=== PATIENT | female | born 1945 | race Caucasian/White ===

== ENCOUNTER 2024-10-14 04:46 | Inpatient (IN) | payer MEDICARE ==
[2024-10-14] VITALS (21 sets, daily range): BP systolic 89–146; BP diastolic 37–74
[~2024-10-14] VITALS: Ht 167.6 cm; Wt 61.0 kg
[2024-10-14] MEDS ORDERED: dilTIAZem Hydrochloride 25 MG/5 ML VIAL IV ONE (04:55)
[2024-10-14] MEDS ORDERED: Labetalol Hydrochloride 20 MG/4 ML SYR IV ONE (05:05)
[2024-10-14] MEDS ORDERED: Metoprolol Tartrate 5 MG/5 ML VIAL IV ONE ×4 (05:05→22:45)
[2024-10-14 05:38] LABS: POTASSIUM 4.1 mmol/L (3.4-5.1)
[2024-10-14 05:59] LABS: BASO % 0.2 % (0.0-1.0); EOS % 0.1 % (1.0-4.0); HEMATOCRIT 38.3 % (37.0-47.0); MEAN CELL VOLUME 101.6 fl (81.0-99.0); MEAN CORPUSCULAR HGB 31.8 pg (27.0-31.0); MEAN CORPUSCULAR HGB CONC 31.3 g/dl (33.0-37.0); MEAN PLATELET VOLUME 11.1 fl (9.6-12.3); MONO # 0.9 10*3/uL (0.1-1.0); MONO % 7.3 % (3.0-9.0); NEUT # 10.4 10*3/uL (2.3-7.9); NEUT % 84.5 % (47.0-73.0); PLATELET COUNT AUTOMATED 156 10*3/uL (130-400); RED BLOOD COUNT 3.77 10*6/uL (4.10-5.10); RED CELL DISTRI WIDTH 14.6 % (0-14.5); WHITE BLOOD COUNT 12.3 10*3/uL (4.8-10.8)
[2024-10-14] MEDS ORDERED: Albuterol Sulf/Ipratropium 3 ML VIAL NEB ONE (09:50)
[2024-10-14] MEDS ORDERED: SODIUM CHLORIDE 0.9% 1,000 ML IV SCH (10:00)
[2024-10-14] MEDS ORDERED: cefTRIAXone Sodium 1 GM/10 ML SYR IV ONE (10:00)
[2024-10-14] MEDS ORDERED: AZITHROMYCIN 250 ML IV ONE (10:00)
[2024-10-14] MEDS ORDERED: BISACODYL 5 MG TAB PO PRN (11:25)
[2024-10-14] MEDS ORDERED: Ondansetron Hydrochloride 4 MG/2 ML VIAL IV PRN (11:25)
[2024-10-14] MEDS ORDERED: BISACODYL 10 MG SUPP R PRN (11:25)
[2024-10-14] MEDS ORDERED: ACETAMINOPHEN 325 MG TAB PO PRN (11:25)
[2024-10-14] MEDS ORDERED: DEXTROSE 10 % IN WATER 250 ML IV PRN (11:25)
[2024-10-14] MEDS ORDERED: INSULIN LISPRO 1 UNIT/0.01 ML SQ SCH (11:30)
[2024-10-14] MEDS ORDERED: APRESOLINE25 MG PO (11:34)
[2024-10-14] MEDS ORDERED: MAGNESIUM OXID400 MG PO (11:35)
[2024-10-14] MEDS ORDERED: MIDODRINE HCL10 MG PO (11:35)
[2024-10-14] MEDS ORDERED: Metolazone5 MG PO (11:35)
[2024-10-14] MEDS ORDERED: ATORVASTATIN CA40 M1 PO (11:36)
[2024-10-14] MEDS ORDERED: GABAPENTIN100 M2 PO (11:37)
[2024-10-14] MEDS ORDERED: CALCIUM ACETAT667 MG PO (11:37)
[2024-10-14] MEDS ORDERED: RENA-VITE1 TAB PO (11:37)
[2024-10-14] MEDS ORDERED: BUDESONIDE0.5 MG/2 M INH (11:38)
[2024-10-14] MEDS ORDERED: DOCUSATE SOD100 MG PO (11:38)
[2024-10-14] MEDS ORDERED: Ipratropium Brom3 ML INH (11:39)
[2024-10-14] MEDS ORDERED: RENVELA800 MG PO (11:39)
[2024-10-14] MEDS ORDERED: WARFARIN SODIUM3 MG PO (11:39)
[2024-10-14] MEDS ORDERED: TOUJEO SOL300 UNIT/1 SQ (11:40)
[2024-10-14] MEDS ORDERED: ISORDIL10 M1 PO (11:40)
[2024-10-14] MEDS ORDERED: METOPROLOL SUC100 M1 PO (11:40)
[2024-10-14] MEDS ORDERED: HYDROCODONE-AC1 EAC1 PO (11:41)
[2024-10-14] MEDS ORDERED: OMEPRAZOLE MAGN20 MG PO (11:41)
[2024-10-14] MEDS ORDERED: BUDESONIDE 0.5 MG AMP NEB SCH (12:34)
[2024-10-14] MEDS ORDERED: Albuterol Sulf/Ipratropium 3 ML VIAL NEB SCH (12:34)
[2024-10-14 14:51] LABS: ARTERIAL BLOOD GAS PH 7.28 (7.350-7.450)
[2024-10-14 14:53] LABS: ABG BASE EXCESS 0.2 mmol/L (-2.0-3.0); ABG O2 SATURATION 94.6 % (94.0-98.0); ARTERIAL BLOOD GAS PO2 82.3 mmHg (83.0-108.0)
[2024-10-14 17:20] LABS: ABG BASE EXCESS 1.7 mmol/L (-2.0-3.0); ABG O2 SATURATION 97.3 % (94.0-98.0); ARTERIAL BLOOD GAS PH 7.361 (7.350-7.450); ARTERIAL BLOOD GAS PO2 89.8 mmHg (83.0-108.0)
[2024-10-14] MEDS ORDERED: WARFARIN SODIUM 3 MG TAB PO SCH (18:00)
[2024-10-14] MEDS ORDERED: GUAIFENESIN 600 MG TAB ER PO SCH (22:00)
[2024-10-14] MEDS ORDERED: HEPARIN SODIUM 5,000 UNIT/ML VIAL SC SCH (22:00)
[2024-10-14] MEDS ORDERED: ALBUTEROL 8 GM INHALER INH ONE (22:35)
[2024-10-14] MEDS ORDERED: diazePAM 10 MG/2 ML SYR IV ONE (22:40)
[2024-10-15] VITALS (23 sets, daily range): BP systolic 105–151; BP diastolic 17–70
[2024-10-15] MEDS ORDERED: Acetaminophen/Hydrocodone 5 MG/325 MG TABLET PO PRN (01:10)
[2024-10-15 01:37] LABS: ABG O2 SATURATION 94.3 % (94.0-98.0); ARTERIAL BLOOD GAS PH 7.337 (7.350-7.450); ARTERIAL BLOOD GAS PO2 81.7 mmHg (83.0-108.0)
[2024-10-15 01:38] LABS: ABG BASE EXCESS -2.1 mmol/L (-2.0-3.0)
[2024-10-15] MEDS ORDERED: OMEPRAZOLE 20 MG CAP PO SCH (06:00)
[2024-10-15] MEDS ORDERED: diazePAM 10 MG/2 ML SYR IV ONE ×2 (06:10→11:50)
[2024-10-15 06:42] LABS: BASO # 0.1 10*3/uL (0.0-0.1); BASO % 0.4 % (0.0-1.0); EOS % 0.2 % (1.0-4.0); HEMATOCRIT 39.2 % (37.0-47.0); MEAN CORPUSCULAR HGB 31.9 pg (27.0-31.0); MEAN CORPUSCULAR HGB CONC 31.9 g/dl (33.0-37.0); MEAN PLATELET VOLUME 10.9 fl (9.6-12.3); MONO # 0.8 10*3/uL (0.1-1.0); MONO % 6.4 % (3.0-9.0); NEUT # 10.1 10*3/uL (2.3-7.9); NEUT % 83.1 % (47.0-73.0); PLATELET COUNT AUTOMATED 150 10*3/uL (130-400); RED BLOOD COUNT 3.92 10*6/uL (4.10-5.10); WHITE BLOOD COUNT 12.1 10*3/uL (4.8-10.8)
[2024-10-15 07:26] LABS: FREE T4 0.98 ng/dl (0.89-1.76); TOTAL PROTEIN 7.7 gm/dL (6.0-8.0)
[2024-10-15 07:40] LABS: POTASSIUM 5.2 mmol/L (3.4-5.1)
[2024-10-15] MEDS ORDERED: Sevelamer Hydrochloride 800 MG TAB PO SCH (08:00)
[2024-10-15] MEDS ORDERED: CALCIUM ACETATE 667 MG CAP PO SCH (08:00)
[2024-10-15 08:05] LABS: VITAMIN D, 25-HYDROXY 92.1 ng/mL (30-100)
[2024-10-15] MEDS ORDERED: HEPARIN SODIUM 10,000 UN/10 ML VIAL IV SCH (08:25)
[2024-10-15] MEDS ORDERED: SODIUM CHLORIDE 0.9% 1,000 ML IV SCH (08:25)
[2024-10-15] MEDS ORDERED: ALBUMIN 25% 50 ML IV PRN (08:25)
[2024-10-15] MEDS ORDERED: MANNITOL 12.5 GM/50 ML VIAL IV SCH (08:25)
[2024-10-15] MEDS ORDERED: HEPARIN SODIUM 5,000 UNIT/ML VIAL IV SCH (08:25)
[2024-10-15] MEDS ORDERED: SODIUM CHLORIDE 23.4% 120 MEQ/30 ML VIAL IV SCH (08:25)
[2024-10-15] MEDS ORDERED: HEPARIN SODIUM 10,000 UN/10 ML VIAL IV ONE (08:54)
[2024-10-15] MEDS ORDERED: SODIUM CHLORIDE 0.9% 1,000 ML (CHILLED) IVB IV ONE ×2 (08:54→08:55)
[2024-10-15] MEDS ORDERED: METOPROLOL SUCCINATE XR 100 MG TAB PO SCH (10:00)
[2024-10-15] MEDS ORDERED: AZITHROMYCIN 250 ML IV SCH (10:00)
[2024-10-15] MEDS ORDERED: hydrALAZINE hydrochloride 25 MG TAB PO SCH (10:00)
[2024-10-15] MEDS ORDERED: Midodrine Hydrochloride 5 MG TAB PO SCH (10:00)
[2024-10-15] MEDS ORDERED: GABAPENTIN 100 MG CAP PO SCH (10:00)
[2024-10-15] MEDS ORDERED: DOCUSATE SODIUM 100 MG CAP PO SCH (10:00)
[2024-10-15] MEDS ORDERED: cefTRIAXone Sodium 1 GM,IV 1 EA in SYRINGE INFUSION 10 ML IV SCH (11:00)
[2024-10-15] MEDS ORDERED: Metoprolol Tartrate 5 MG/5 ML VIAL IV ONE ×4 (11:25→15:25)
[2024-10-15 11:33] LABS: ABG O2 SATURATION 91.8 % (94.0-98.0); ARTERIAL BLOOD GAS PO2 69.2 mmHg (83.0-108.0)
[2024-10-15 11:37] LABS: ABG BASE EXCESS -2.5 mmol/L (-2.0-3.0)
[2024-10-15 11:42] LABS: ARTERIAL BLOOD GAS PH 7.239 (7.350-7.450)
[2024-10-15] MEDS ORDERED: dilTIAZem Hydrochloride 100 ML IV ONE (11:42)
[2024-10-15] MEDS ORDERED: DIAZEPAM IV ONE (12:12)
[2024-10-15] MEDS ORDERED: dexmedeTOMIDine IN 0.9 % NACL 100 ML IV SCH (13:35)
[2024-10-15 14:33] LABS: ABG O2 SATURATION 95.6 % (94.0-98.0)
[2024-10-15 14:40] LABS: ARTERIAL BLOOD GAS PO2 86.2 mmHg (83.0-108.0)
[2024-10-15 14:42] LABS: ABG BASE EXCESS -2.5 mmol/L (-2.0-3.0); ARTERIAL BLOOD GAS PH 7.251 (7.350-7.450)
[2024-10-15] MEDS ORDERED: SODIUM CHLORIDE 0.9% 500 ML IV ONE (16:35)
[2024-10-15] MEDS ORDERED: Albuterol Sulf/Ipratropium 3 ML VIAL NEB SCH (17:00)
[2024-10-15] MEDS ORDERED: IPRATROPIUM BROMIDE 0.5 MG/2.5 ML AMP NEB SCH (17:00)
[2024-10-15] MEDS ORDERED: Midazolam Hydrochloride 5 MG/5 ML VIAL ONE ×2 (17:32→18:38)
[2024-10-15] MEDS ORDERED: Midazolam Hydrochloride 2 MG/2 ML VIAL IV PRN (17:50)
[2024-10-15] MEDS ORDERED: ATORVASTATIN CALCIUM 40 MG TABLET PO SCH (18:00)
[2024-10-15] MEDS ORDERED: NOREPINEPHRINE BITARTRATE/D5W 250 ML IV SCH (18:50)
[2024-10-15] MEDS ORDERED: NOREPINEPHRINE BITARTRATE/D5W 250 ML IV ONE (19:09)
[2024-10-15] MEDS ORDERED: CEFEPIME HCL IN DEXTROSE 5 % 50 ML IV SCH (21:30)
[2024-10-15 21:58] LABS: ABG O2 SATURATION 99.8 % (94.0-98.0); ARTERIAL BLOOD GAS PH 7.29 (7.350-7.450)
[2024-10-15 21:59] LABS: ABG BASE EXCESS -5.1 mmol/L (-2.0-3.0)
[2024-10-15] MEDS ORDERED: Chlorhexidine Gluconate 15 ML MOUTHWASH T SCH (22:00)
[2024-10-15] MEDS ORDERED: Doxycycline Hyclate 100 MG,IV 1 EA in SODIUM CHLORIDE 0.9% 250 ML IV SCH (22:00)
[2024-10-15 22:01] LABS: ARTERIAL BLOOD GAS PO2 544.7 mmHg (83.0-108.0)
[2024-10-15] MEDS ORDERED: SODIUM BICARBONATE 50 MEQ/50 ML VIAL IV ONE (22:15)
[2024-10-16] VITALS (81 sets, daily range): BP systolic 92–149; BP diastolic 41–68
[2024-10-16 05:07] LABS: POTASSIUM 4.6 mmol/L (3.4-5.1)
[2024-10-16 06:02] LABS: BASO % 0.6 % (0.0-1.0); EOS % 0.2 % (1.0-4.0); MEAN CELL VOLUME 99.7 fl (81.0-99.0); MEAN CORPUSCULAR HGB 31.8 pg (27.0-31.0); MEAN CORPUSCULAR HGB CONC 31.9 g/dl (33.0-37.0); MEAN PLATELET VOLUME 11.8 fl (9.6-12.3); MONO # 0.7 10*3/uL (0.1-1.0); MONO % 10.1 % (3.0-9.0); NEUT # 4.9 10*3/uL (2.3-7.9); NEUT % 76.1 % (47.0-73.0); PLATELET COUNT AUTOMATED 140 10*3/uL (130-400); RED BLOOD COUNT 3.71 10*6/uL (4.10-5.10); RED CELL DISTRI WIDTH 14.6 % (0-14.5); WHITE BLOOD COUNT 6.4 10*3/uL (4.8-10.8)
[2024-10-16 07:48] LABS: ABG BASE EXCESS 0.9 mmol/L (-2.0-3.0); ABG O2 SATURATION 99.6 % (94.0-98.0); ARTERIAL BLOOD GAS PH 7.374 (7.350-7.450); ARTERIAL BLOOD GAS PO2 218.1 mmHg (83.0-108.0)
[2024-10-16] MEDS ORDERED: Pantoprazole Sodium 40 MG VIAL IV SCH (10:00)
[2024-10-16] MEDS ORDERED: ETOMIDATE 20 MG/10 ML VIAL IV ONE (13:05)
[2024-10-17] VITALS (29 sets, daily range): BP systolic 89–133; BP diastolic 33–68
[2024-10-17 05:31] LABS: POTASSIUM 4.3 mmol/L (3.4-5.1)
[2024-10-17 06:06] LABS: BASO % 0.5 % (0.0-1.0); EOS # 0.2 10*3/uL (0.0-0.4); EOS % 2.6 % (1.0-4.0); HEMATOCRIT 36.2 % (37.0-47.0); MEAN CELL VOLUME 97.3 fl (81.0-99.0); MEAN CORPUSCULAR HGB 31.5 pg (27.0-31.0); MEAN CORPUSCULAR HGB CONC 32.3 g/dl (33.0-37.0); MEAN PLATELET VOLUME 11.6 fl (9.6-12.3); MONO # 0.6 10*3/uL (0.1-1.0); MONO % 7.7 % (3.0-9.0); NEUT # 6.8 10*3/uL (2.3-7.9); PLATELET COUNT AUTOMATED 128 10*3/uL (130-400); RED BLOOD COUNT 3.72 10*6/uL (4.10-5.10); RED CELL DISTRI WIDTH 14.4 % (0-14.5); WHITE BLOOD COUNT 8.4 10*3/uL (4.8-10.8)
[2024-10-17 07:18] LABS: ABG BASE EXCESS -0.8 mmol/L (-2.0-3.0); ABG O2 SATURATION 95.9 % (94.0-98.0); ARTERIAL BLOOD GAS PH 7.367 (7.350-7.450); ARTERIAL BLOOD GAS PO2 93.1 mmHg (83.0-108.0)
[2024-10-17] MEDS ORDERED: DEXMEDETOMIDINE HCL IV SCH (07:30)
[2024-10-17] MEDS ORDERED: SODIUM CHLORIDE 0.9% IV SCH (07:30)
[2024-10-17] MEDS ORDERED: Amiodarone Hydrochloride 150 MG,IV 1 EA in DEXTROSE 5% 100 ML IV ONE (09:50)
[2024-10-17] MEDS ORDERED: Amiodarone Hydrochloride 900 MG in DEXTROSE 5% 500 ML IV SCH (10:00)
[2024-10-17] MEDS ORDERED: Amiodarone Hydrochloride 150 MG in DEXTROSE 5% 100 ML IV ONE (10:00)
[2024-10-17 19:14] LABS: ABG O2 SATURATION 96.4 % (94.0-98.0); ARTERIAL BLOOD GAS PH 7.353 (7.350-7.450); ARTERIAL BLOOD GAS PO2 91.9 mmHg (83.0-108.0)
[2024-10-17 19:15] LABS: ABG BASE EXCESS -3.4 mmol/L (-2.0-3.0)
[2024-10-17] MEDS ORDERED: Vancomycin Hydrochloride 1,000 MG VIAL IV SCH (20:10)
[2024-10-17] MEDS ORDERED: Vancomycin Hydrochloride 1,000 MG in SODIUM CHLORIDE 0.9% 250 ML IV SCH (21:00)
[2024-10-18] VITALS (12 sets, daily range): BP systolic 88–132; BP diastolic 28–84
[2024-10-18 05:12] LABS: POTASSIUM 4.4 mmol/L (3.4-5.1); TOTAL PROTEIN 5.8 gm/dL (6.0-8.0)
[2024-10-18 06:03] LABS: BASO % 0.2 % (0.0-1.0); EOS # 0.1 10*3/uL (0.0-0.4); EOS % 1.1 % (1.0-4.0); HEMATOCRIT 32.6 % (37.0-47.0); MEAN CELL VOLUME 96.7 fl (81.0-99.0); MEAN CORPUSCULAR HGB CONC 33.1 g/dl (33.0-37.0); MEAN PLATELET VOLUME 12.2 fl (9.6-12.3); MONO # 0.7 10*3/uL (0.1-1.0); MONO % 6.9 % (3.0-9.0); NEUT # 7.8 10*3/uL (2.3-7.9); PLATELET COUNT AUTOMATED 115 10*3/uL (130-400); RED BLOOD COUNT 3.37 10*6/uL (4.10-5.10); RED CELL DISTRI WIDTH 14.1 % (0-14.5); WHITE BLOOD COUNT 10.1 10*3/uL (4.8-10.8)
[2024-10-18 08:58] LABS: ARTERIAL BLOOD GAS PH 7.339 (7.350-7.450)
[2024-10-18 09:00] LABS: ABG BASE EXCESS -5.1 mmol/L (-2.0-3.0); ABG O2 SATURATION 95.4 % (94.0-98.0); ARTERIAL BLOOD GAS PO2 88.6 mmHg (83.0-108.0)
[2024-10-18] MEDS ORDERED: HEPARIN SODIUM 10,000 UN/10 ML VIAL IV ONE (09:33)
[2024-10-18] MEDS ORDERED: SODIUM CHLORIDE 0.9% 1,000 ML BAG IV ONE (09:33)
[2024-10-18] MEDS ORDERED: PROPOFOL 500 MG/50 ML VIAL IV SCH (10:25)
[2024-10-18] MEDS ORDERED: PROPOFOL 1,000 MG/100 ML VIAL IV SCH (11:15)
[2024-10-18] MEDS ORDERED: Vancomycin Hydrochloride 500 MG in SODIUM CHLORIDE 0.9% 100 ML IV SCH (16:00)
[2024-10-18] MEDS ORDERED: methylPREDNISolone sod succ 40 MG VIAL IV SCH (18:00)
[2024-10-18] MEDS ORDERED: Metoprolol Tartrate 25 MG TAB PO SCH (22:00)
[2024-10-19] VITALS (12 sets, daily range): BP systolic 93–165; BP diastolic 28–73
[2024-10-19 06:18] LABS: HEMATOCRIT 32.2 % (37.0-47.0); MEAN CELL VOLUME 97.6 fl (81.0-99.0); MEAN CORPUSCULAR HGB 31.8 pg (27.0-31.0); MEAN CORPUSCULAR HGB CONC 32.6 g/dl (33.0-37.0); MEAN PLATELET VOLUME 12.4 fl (9.6-12.3); PLATELET COUNT AUTOMATED 117 10*3/uL (130-400); RED CELL DISTRI WIDTH 14.3 % (0-14.5); WHITE BLOOD COUNT 10.1 10*3/uL (4.8-10.8)
[2024-10-19 06:23] LABS: MANUAL DIFF REFLEX YES
[2024-10-19 06:28] LABS: POTASSIUM 4.6 mmol/L (3.4-5.1)
[2024-10-19 08:19] LABS: ABG O2 SATURATION 96.5 % (94.0-98.0); ARTERIAL BLOOD GAS PH 7.377 (7.350-7.450); ARTERIAL BLOOD GAS PO2 86.2 mmHg (83.0-108.0)
[2024-10-19 08:30] LABS: BURR CELLS FEW; POLYCHROMASIA SLIGHT; TOTAL CELLS COUNTED 100 #CELLS
[2024-10-19 08:31] LABS: PLATELET SUFFICIENCY NORMAL (NORMAL)
[2024-10-19] MEDS ORDERED: Meropenem 500 MG in SODIUM CHLORIDE 0.9% 100 ML IV SCH (16:00)
[2024-10-20] VITALS (13 sets, daily range): BP systolic 107–151; BP diastolic 28–58
[2024-10-20 04:35] LABS: MEAN CELL VOLUME 96.5 fl (81.0-99.0); MEAN CORPUSCULAR HGB 31.6 pg (27.0-31.0); MEAN CORPUSCULAR HGB CONC 32.7 g/dl (33.0-37.0); MEAN PLATELET VOLUME 11.2 fl (9.6-12.3); RED BLOOD COUNT 3.42 10*6/uL (4.10-5.10); RED CELL DISTRI WIDTH 14.2 % (0-14.5); WHITE BLOOD COUNT 14.1 10*3/uL (4.8-10.8)
[2024-10-20 04:36] LABS: MANUAL DIFF REFLEX YES
[2024-10-20 04:37] LABS: PLATELET COUNT AUTOMATED 166 10*3/uL (130-400)
[2024-10-20 04:51] LABS: POTASSIUM 4.4 mmol/L (3.4-5.1)
[2024-10-20 04:59] LABS: ATYPICAL LYMPHS 1 % (0-0); PLATELET SUFFICIENCY NORMAL (NORMAL); TOTAL CELLS COUNTED 100 #CELLS
[2024-10-20 05:00] LABS: BURR CELLS FEW; POLYCHROMASIA SLIGHT; ROULEAUX SLIGHT
[2024-10-20] MEDS ORDERED: HEPARIN SODIUM 10,000 UN/10 ML VIAL IV ONE (08:43)
[2024-10-20] MEDS ORDERED: SODIUM CHLORIDE 0.9% 1,000 ML BAG IV ONE (08:43)
[2024-10-20] MEDS ORDERED: Oseltamivir Phosphate 30 MG CAP PO SCH ×2 (10:00)
[2024-10-20] MEDS ORDERED: Metoprolol Tartrate 50 MG TAB PO SCH (22:00)
[2024-10-21] VITALS (10 sets, daily range): BP systolic 107–140; BP diastolic 28–49
[2024-10-21 06:49] LABS: POTASSIUM 4.4 mmol/L (3.4-5.1)
[2024-10-21 06:50] LABS: BASO % 0.2 % (0.0-1.0); HEMATOCRIT 36.9 % (37.0-47.0); MEAN CELL VOLUME 98.7 fl (81.0-99.0); MEAN CORPUSCULAR HGB 31.6 pg (27.0-31.0); MEAN PLATELET VOLUME 11.2 fl (9.6-12.3); MONO # 0.8 10*3/uL (0.1-1.0); MONO % 4.9 % (3.0-9.0); NEUT # 14.1 10*3/uL (2.3-7.9); NEUT % 89.1 % (47.0-73.0); NUCLEATED RED BLOOD CELL 0.1 % (0.0-0.0); RED BLOOD COUNT 3.74 10*6/uL (4.10-5.10); RED CELL DISTRI WIDTH 14.3 % (0-14.5); WHITE BLOOD COUNT 15.8 10*3/uL (4.8-10.8)
[2024-10-21 06:51] LABS: PLATELET COUNT AUTOMATED 236 10*3/uL (130-400)
[2024-10-21 11:49] LABS: ABG BASE EXCESS 0.9 mmol/L (-2.0-3.0); ABG O2 SATURATION 92.6 % (94.0-98.0); ARTERIAL BLOOD GAS PH 7.414 (7.350-7.450); ARTERIAL BLOOD GAS PO2 63.5 mmHg (83.0-108.0)
[2024-10-21] MEDS ORDERED: Meropenem 50 ML IV SCH (16:00)
[2024-10-21] MEDS ORDERED: WARFARIN SODIUM 2.5 MG TAB PO SCH (18:00)
[2024-10-21 18:07] LABS: ABG BASE EXCESS -1.2 mmol/L (-2.0-3.0); ABG O2 SATURATION 95.2 % (94.0-98.0); ARTERIAL BLOOD GAS PH 7.389 (7.350-7.450)
[2024-10-22] VITALS: BP 129/33
[2024-10-22 03:58] VITALS: BP 129/39
[2024-10-22 07:08] LABS: HEMATOCRIT 32.9 % (37.0-47.0); MEAN CELL VOLUME 97.6 fl (81.0-99.0); MEAN CORPUSCULAR HGB 30.9 pg (27.0-31.0); MEAN CORPUSCULAR HGB CONC 31.6 g/dl (33.0-37.0); MEAN PLATELET VOLUME 10.5 fl (9.6-12.3); PLATELET COUNT AUTOMATED 227 10*3/uL (130-400); RED BLOOD COUNT 3.37 10*6/uL (4.10-5.10); RED CELL DISTRI WIDTH 14.2 % (0-14.5); WHITE BLOOD COUNT 19.4 10*3/uL (4.8-10.8)
[2024-10-22 07:09] LABS: MANUAL DIFF REFLEX YES
[2024-10-22 07:43] LABS: POTASSIUM 4.5 mmol/L (3.4-5.1)
[2024-10-22 08:00] VITALS: BP 130/47
[2024-10-22 08:23] LABS: PLATELET SUFFICIENCY NORMAL (NORMAL); SCHISTOCYTES FEW; TOTAL CELLS COUNTED 100 #CELLS
[2024-10-22] MEDS ORDERED: HEPARIN SODIUM 10,000 UN/10 ML VIAL IV ONE (08:49)
[2024-10-22] MEDS ORDERED: SODIUM CHLORIDE 0.9% 1,000 ML BAG IV ONE (08:49)
[2024-10-22] MEDS ORDERED: methylPREDNISolone sod succ 40 MG VIAL IV SCH (10:00)
[2024-10-22 12:00] VITALS: BP 136/46
[2024-10-22 16:00] VITALS: BP 138/33
[2024-10-22 17:40] LABS: ABG BASE EXCESS 0.7 mmol/L (-2.0-3.0); ARTERIAL BLOOD GAS PH 7.398 (7.350-7.450)
[2024-10-22 20:00] VITALS: BP 121/51
[2024-10-23] VITALS: BP 95/38
[2024-10-23 04:00] VITALS: BP 93/38
[2024-10-23 05:20] LABS: POTASSIUM 4.6 mmol/L (3.4-5.1)
[2024-10-23 06:24] LABS: BASO % 0.3 % (0.0-1.0); EOS % 0.1 % (1.0-4.0); HEMATOCRIT 33.9 % (37.0-47.0); MEAN CELL VOLUME 98.5 fl (81.0-99.0); MEAN CORPUSCULAR HGB 31.4 pg (27.0-31.0); MEAN CORPUSCULAR HGB CONC 31.9 g/dl (33.0-37.0); MEAN PLATELET VOLUME 11.7 fl (9.6-12.3); MONO % 7.7 % (3.0-9.0); NEUT # 10.8 10*3/uL (2.3-7.9); NEUT % 80.3 % (47.0-73.0); NUCLEATED RED BLOOD CELL 0.1 % (0.0-0.0); PLATELET COUNT AUTOMATED 186 10*3/uL (130-400); RED BLOOD COUNT 3.44 10*6/uL (4.10-5.10); RED CELL DISTRI WIDTH 14.1 % (0-14.5); WHITE BLOOD COUNT 13.4 10*3/uL (4.8-10.8)
[2024-10-23 08:00] VITALS: BP 116/44
[2024-10-23 12:00] VITALS: BP 109/44
[2024-10-23 16:00] VITALS: BP 89/53
[2024-10-23 20:00] VITALS: BP 104/44
[2024-10-24] VITALS (7 sets, daily range): BP systolic 99–128; BP diastolic 36–54
[2024-10-24 05:18] LABS: POTASSIUM 4.4 mmol/L (3.4-5.1)
[2024-10-24 06:20] LABS: HEMATOCRIT 33.5 % (37.0-47.0); MEAN CORPUSCULAR HGB 31.3 pg (27.0-31.0); MEAN CORPUSCULAR HGB CONC 31.9 g/dl (33.0-37.0); MEAN PLATELET VOLUME 10.9 fl (9.6-12.3); PLATELET COUNT AUTOMATED 238 10*3/uL (130-400); RED BLOOD COUNT 3.42 10*6/uL (4.10-5.10); WHITE BLOOD COUNT 19.4 10*3/uL (4.8-10.8)
[2024-10-24 06:27] LABS: MANUAL DIFF REFLEX YES
[2024-10-24 07:14] LABS: BURR CELLS MODERATE; PLATELET SUFFICIENCY NORMAL (NORMAL); TOTAL CELLS COUNTED 100 #CELLS
[2024-10-25] VITALS: BP 96/30
[2024-10-25 04:00] VITALS: BP 119/44
[2024-10-25 06:07] LABS: HEMATOCRIT 35.3 % (37.0-47.0); MEAN CELL VOLUME 97.8 fl (81.0-99.0); MEAN CORPUSCULAR HGB 31.6 pg (27.0-31.0); MEAN CORPUSCULAR HGB CONC 32.3 g/dl (33.0-37.0); MEAN PLATELET VOLUME 10.9 fl (9.6-12.3); NUCLEATED RED BLOOD CELL 0.1 % (0.0-0.0); PLATELET COUNT AUTOMATED 265 10*3/uL (130-400); RED BLOOD COUNT 3.61 10*6/uL (4.10-5.10); WHITE BLOOD COUNT 21.1 10*3/uL (4.8-10.8)
[2024-10-25 06:23] LABS: MANUAL DIFF REFLEX YES
[2024-10-25 06:26] LABS: POTASSIUM 4.9 mmol/L (3.4-5.1)
[2024-10-25 07:05] LABS: BURR CELLS FEW; PLATELET SUFFICIENCY NORMAL (NORMAL); POLYCHROMASIA SLIGHT; TARGET CELLS FEW; TOTAL CELLS COUNTED 100 #CELLS
[2024-10-25 08:00] VITALS: BP 113/92
[2024-10-25] MEDS ORDERED: HEPARIN SODIUM 10,000 UN/10 ML VIAL IV ONE (08:17)
[2024-10-25] MEDS ORDERED: SODIUM CHLORIDE 0.9% 1,000 ML BAG IV ONE (08:17)
[2024-10-25 12:00] VITALS: BP 105/43
[2024-10-25 16:00] VITALS: BP 100/41
[2024-10-25 20:00] VITALS: BP 102/37
[2024-10-26] VITALS (7 sets, daily range): BP systolic 92–119; BP diastolic 16–51
[2024-10-26 05:28] LABS: POTASSIUM 4.3 mmol/L (3.4-5.1)
[2024-10-26 06:07] LABS: BASO % 0.1 % (0.0-1.0); EOS # 0.1 10*3/uL (0.0-0.4); HEMATOCRIT 33.3 % (37.0-47.0); MEAN CELL VOLUME 98.8 fl (81.0-99.0); MEAN CORPUSCULAR HGB 31.5 pg (27.0-31.0); MEAN CORPUSCULAR HGB CONC 31.8 g/dl (33.0-37.0); MEAN PLATELET VOLUME 10.7 fl (9.6-12.3); MONO # 0.7 10*3/uL (0.1-1.0); MONO % 5.1 % (3.0-9.0); NEUT # 11.4 10*3/uL (2.3-7.9); NEUT % 82.1 % (47.0-73.0); PLATELET COUNT AUTOMATED 230 10*3/uL (130-400); RED BLOOD COUNT 3.37 10*6/uL (4.10-5.10); RED CELL DISTRI WIDTH 14.3 % (0-14.5); WHITE BLOOD COUNT 13.9 10*3/uL (4.8-10.8)
[2024-10-26] MEDS ORDERED: Midodrine Hydrochloride 5 MG TAB PO SCH (22:00)
[2024-10-26] MEDS ORDERED: Metoprolol Tartrate 25 MG TAB PO SCH (22:00)
[2024-10-27] VITALS: BP 100/42
[2024-10-27 06:54] LABS: BASO % 0.1 % (0.0-1.0); EOS # 0.2 10*3/uL (0.0-0.4); EOS % 1.4 % (1.0-4.0); HEMATOCRIT 31.9 % (37.0-47.0); MEAN CELL VOLUME 98.5 fl (81.0-99.0); MEAN CORPUSCULAR HGB 31.5 pg (27.0-31.0); MEAN PLATELET VOLUME 10.5 fl (9.6-12.3); MONO # 0.8 10*3/uL (0.1-1.0); MONO % 6.3 % (3.0-9.0); NEUT # 9.4 10*3/uL (2.3-7.9); NEUT % 75.3 % (47.0-73.0); PLATELET COUNT AUTOMATED 215 10*3/uL (130-400); RED BLOOD COUNT 3.24 10*6/uL (4.10-5.10); RED CELL DISTRI WIDTH 14.4 % (0-14.5); WHITE BLOOD COUNT 12.5 10*3/uL (4.8-10.8)
[2024-10-27 07:47] LABS: POTASSIUM 4.5 mmol/L (3.4-5.1)
[2024-10-27] MEDS ORDERED: HEPARIN SODIUM 10,000 UN/10 ML VIAL IV ONE (09:03)
[2024-10-27] MEDS ORDERED: SODIUM CHLORIDE 0.9% 1,000 ML BAG IV ONE (09:03)
[2024-10-27 12:00] VITALS: BP 90/40
[2024-10-27 16:00] VITALS: BP 112/39
[2024-10-27 20:00] VITALS: BP 120/45
[2024-10-28] VITALS: BP 119/45
[2024-10-28] MEDS ORDERED: Pantoprazole Sodium 40 MG TAB PO SCH (06:00)
[2024-10-28 06:14] LABS: BASO % 0.1 % (0.0-1.0); EOS # 0.1 10*3/uL (0.0-0.4); EOS % 1.3 % (1.0-4.0); HEMATOCRIT 30.2 % (37.0-47.0); MEAN CORPUSCULAR HGB 31.1 pg (27.0-31.0); MEAN CORPUSCULAR HGB CONC 31.5 g/dl (33.0-37.0); MEAN PLATELET VOLUME 10.5 fl (9.6-12.3); MONO # 0.8 10*3/uL (0.1-1.0); MONO % 7.7 % (3.0-9.0); NEUT # 8.3 10*3/uL (2.3-7.9); NEUT % 76.6 % (47.0-73.0); PLATELET COUNT AUTOMATED 194 10*3/uL (130-400); RED BLOOD COUNT 3.05 10*6/uL (4.10-5.10); RED CELL DISTRI WIDTH 14.1 % (0-14.5); WHITE BLOOD COUNT 10.9 10*3/uL (4.8-10.8)
[2024-10-28 06:55] LABS: POTASSIUM 3.8 mmol/L (3.4-5.1)
[2024-10-28 08:00] VITALS: BP 94/43
[2024-10-28 12:00] VITALS: BP 126/61
[2024-10-28 16:00] VITALS: BP 121/63
[2024-10-28 20:00] VITALS: BP 120/69
[2024-10-29] VITALS: BP 126/54
[2024-10-29 05:49] LABS: POTASSIUM 3.8 mmol/L (3.4-5.1)
[2024-10-29 06:33] LABS: BASO % 0.1 % (0.0-1.0); EOS # 0.2 10*3/uL (0.0-0.4); EOS % 1.3 % (1.0-4.0); HEMATOCRIT 30.7 % (37.0-47.0); MEAN CORPUSCULAR HGB 31.3 pg (27.0-31.0); MEAN CORPUSCULAR HGB CONC 31.6 g/dl (33.0-37.0); MEAN PLATELET VOLUME 10.9 fl (9.6-12.3); MONO # 0.8 10*3/uL (0.1-1.0); MONO % 6.7 % (3.0-9.0); NEUT # 8.7 10*3/uL (2.3-7.9); NEUT % 77.3 % (47.0-73.0); PLATELET COUNT AUTOMATED 177 10*3/uL (130-400); RED CELL DISTRI WIDTH 14.2 % (0-14.5); WHITE BLOOD COUNT 11.3 10*3/uL (4.8-10.8)
[2024-10-29] MEDS ORDERED: FOAM BANDAGE 5X5 T ONE ×2 (06:57→07:04)
[2024-10-29 08:00] VITALS: BP 122/59; BP 126/54
[2024-10-29] MEDS ORDERED: Oseltamivir Phosphate 30 MG CAP PO SCH (10:00)
[2024-10-29] MEDS ORDERED: GABAPENTIN 100 MG CAP PO SCH (10:00)
[2024-10-29 12:00] VITALS: BP 122/59
[2024-10-29] MEDS ORDERED: BENZONATATE 100 MG CAP PO PRN (14:40)
[2024-10-29 16:00] VITALS: BP 122/59; BP 124/48
[2024-10-29] MEDS ORDERED: Lidocaine Hydrochloride 3% 30 GM CREAM T SCH (22:00)
[2024-10-29] MEDS ORDERED: SILVER SULFADIAZINE 25 GM TUBE T SCH (22:00)
[2024-10-30] VITALS: BP 112/55
[2024-10-30] MEDS ORDERED: FOAM BANDAGE 1 EACH BANDAGE T ONE (05:40)
[2024-10-30 06:33] LABS: BASO % 0.3 % (0.0-1.0); EOS # 0.2 10*3/uL (0.0-0.4); EOS % 1.5 % (1.0-4.0); HEMATOCRIT 31.1 % (37.0-47.0); MEAN CORPUSCULAR HGB 30.9 pg (27.0-31.0); MEAN CORPUSCULAR HGB CONC 31.2 g/dl (33.0-37.0); MONO % 9.3 % (3.0-9.0); NEUT % 74.9 % (47.0-73.0); PLATELET COUNT AUTOMATED 173 10*3/uL (130-400); RED BLOOD COUNT 3.14 10*6/uL (4.10-5.10); WHITE BLOOD COUNT 10.6 10*3/uL (4.8-10.8)
[2024-10-30 06:35] LABS: POTASSIUM 3.8 mmol/L (3.4-5.1)
[2024-10-30 08:00] VITALS: BP 119/45
[2024-10-30] MEDS ORDERED: HEPARIN SODIUM 10,000 UN/10 ML VIAL IV ONE (08:28)
[2024-10-30] MEDS ORDERED: SODIUM CHLORIDE 0.9% 1,000 ML BAG IV ONE (08:28)
[2024-10-30 12:00] VITALS: BP 113/43
[2024-10-30] MEDS ORDERED: LOPRESSOR25 MG PO (13:20)
[2024-10-30] MEDS ORDERED: LIDOCAINE HC28.35 GM T (13:20)
[2024-10-30] MEDS ORDERED: TAMIFLU30 MG PO (13:20)
[2024-10-30] MEDS ORDERED: SILVADENE,SSD C50 GM T (13:20)
== END 2024-10-30 15:14 | DRG 870 ==
LOC: ED 04:46 → EDHOLD 10:01 → ICCU 10:01 → 4E 10:01 → ICCU 10-15 11:28 → 4E 10-26 18:09
PROVIDERS: Family Medicine; Internal Medicine; Internal Medicine Critical Care Medicine; Registered Nurse; Student in an Organized Health Care Education/Training Program; ADMIT Internal Medicine; ATTEND Internal Medicine
PROC: 5A1955Z Respiratory Ventilation, Greater than 96 Consecutive Hours (ICD-10-PCS; principal; 2024-10-15)
PROC: 0BH17EZ Insertion of Endotracheal Airway into Trachea, Via Natural or Artificial Opening (ICD-10-PCS; 2024-10-15)
PROC: 06HM33Z Insertion of Infusion Device into Right Femoral Vein, Percutaneous Approach (ICD-10-PCS; 2024-10-15)
PROC: B54BZZA Ultrasonography of Right Lower Extremity Veins, Guidance (ICD-10-PCS; 2024-10-15)
PROC: 5A09357 Assistance with Respiratory Ventilation, Less than 24 Consecutive Hours, Continuous Positive Airway Pressure (ICD-10-PCS; 2024-10-15)
PROC: 5A1D70Z Performance of Urinary Filtration, Intermittent, Less than 6 Hours Per Day (ICD-10-PCS; 2024-10-15)
PROC: 5A1D70Z Performance of Urinary Filtration, Intermittent, Less than 6 Hours Per Day (ICD-10-PCS; 2024-10-20)
PROC: 5A09357 Assistance with Respiratory Ventilation, Less than 24 Consecutive Hours, Continuous Positive Airway Pressure (ICD-10-PCS; 2024-10-22)
PROC: 5A09357 Assistance with Respiratory Ventilation, Less than 24 Consecutive Hours, Continuous Positive Airway Pressure (ICD-10-PCS; 2024-10-23)
PROC: 5A09357 Assistance with Respiratory Ventilation, Less than 24 Consecutive Hours, Continuous Positive Airway Pressure (ICD-10-PCS; 2024-10-24)
PROC: 5A09357 Assistance with Respiratory Ventilation, Less than 24 Consecutive Hours, Continuous Positive Airway Pressure (ICD-10-PCS; 2024-10-25)
PROC: 5A1D70Z Performance of Urinary Filtration, Intermittent, Less than 6 Hours Per Day (ICD-10-PCS; 2024-10-25)
PROC: 5A09357 Assistance with Respiratory Ventilation, Less than 24 Consecutive Hours, Continuous Positive Airway Pressure (ICD-10-PCS; 2024-10-26)
PROC: 5A09357 Assistance with Respiratory Ventilation, Less than 24 Consecutive Hours, Continuous Positive Airway Pressure (ICD-10-PCS; 2024-10-27)
PROC: 5A09357 Assistance with Respiratory Ventilation, Less than 24 Consecutive Hours, Continuous Positive Airway Pressure (ICD-10-PCS; 2024-10-28)
PROC: 5A1D70Z Performance of Urinary Filtration, Intermittent, Less than 6 Hours Per Day (ICD-10-PCS; 2024-10-28)
PROC: 5A09357 Assistance with Respiratory Ventilation, Less than 24 Consecutive Hours, Continuous Positive Airway Pressure (ICD-10-PCS; 2024-10-29)
PROC: 5A09357 Assistance with Respiratory Ventilation, Less than 24 Consecutive Hours, Continuous Positive Airway Pressure (ICD-10-PCS; 2024-10-30)
DX: A41.89 Other specified sepsis (principal); N18.6 End stage renal disease; J96.21 Acute and chronic respiratory failure with hypoxia; I50.21 Acute systolic (congestive) heart failure; J96.22 Acute and chronic respiratory failure with hypercapnia; J12.1 Respiratory syncytial virus pneumonia; J10.08 Influenza due to other identified influenza virus with other specified pneumonia; I13.2 Hypertensive heart and chronic kidney disease with heart failure and with stage 5 chronic kidney disease, or end stage renal disease; E44.0 Moderate protein-calorie malnutrition; J44.1 Chronic obstructive pulmonary disease with (acute) exacerbation; I42.9 Cardiomyopathy, unspecified; J84.114 Acute interstitial pneumonitis; Z20.822 Contact with and (suspected) exposure to COVID-19; R65.20 Severe sepsis without septic shock; I48.91 Unspecified atrial fibrillation; I25.10 Atherosclerotic heart disease of native coronary artery without angina pectoris; F17.210 Nicotine dependence, cigarettes, uncomplicated; E83.39 Other disorders of phosphorus metabolism; E87.5 Hyperkalemia; D64.9 Anemia, unspecified; E11.22 Type 2 diabetes mellitus with diabetic chronic kidney disease; S30.0XXA Contusion of lower back and pelvis, initial encounter; Z96.1 Presence of intraocular lens; Z99.81 Dependence on supplemental oxygen; Z99.2 Dependence on renal dialysis; I25.2 Old myocardial infarction; Z98.42 Cataract extraction status, left eye; Z98.41 Cataract extraction status, right eye; Z90.710 Acquired absence of both cervix and uterus; Z68.24 Body mass index [BMI] 24.0-24.9, adult; Z82.49 Family history of ischemic heart disease and other diseases of the circulatory system; Z88.8 Allergy status to other drugs, medicaments and biological substances; Z91.09 Other allergy status, other than to drugs and biological substances; X58.XXXA Exposure to other specified factors, initial encounter; Y93.89 Activity, other specified; Y92.89 Other specified places as the place of occurrence of the external cause; Y99.8 Other external cause status